=== PATIENT | male | born 2005 | race African-American/Black ===

== ENCOUNTER 2025-05-13 18:43 | Emergency (ER) | payer SELFPAY ==
[~2025-05-13] VITALS: Ht 180.3 cm; Wt 59.4 kg
[2025-05-13] MEDS: IBUPROFEN 600 MG TAB PO STA (20:44)
[2025-05-13 21:30] VITALS: PULSE 62; RESP 18; TEMP 97.9
[2025-05-13 21:39] VITALS: BP 118/61; PULSE 62; RESP 18; TEMP 97.9; O2SAT 98
== END 2025-05-13 21:35 | disposition home or self-care (01) ==
LOC: FSED 19:12
DX: S62.396A Other fracture of fifth metacarpal bone, right hand, initial encounter for closed fracture (principal); W22.09XA Striking against other stationary object, initial encounter; Y92.89 Other specified places as the place of occurrence of the external cause
CPT/HCPCS: 99284